=== PATIENT | female | born 1990 ===

== ENCOUNTER 2018-01-29 11:51 | Outpatient (CLI) | payer OTHER ==
[2018-01-29] MEDS ORDERED: SYNTHROID50 MCG PO (12:08)
[2018-01-29] MEDS ORDERED: PRENATAL FORMU1 EAC1 PO (12:10)
[2018-01-29] MEDS ORDERED: FOLIC ACID0.8 MG PO (12:11)
== END 2018-01-29 17:16 | disposition home or self-care (01) ==
LOC: OBS/DEL 11:51
DX: O26.892 Other specified pregnancy related conditions, second trimester (principal); Z04.1 Encounter for examination and observation following transport accident; O60.02 Preterm labor without delivery, second trimester; Z34.82 Encounter for supervision of other normal pregnancy, second trimester; V43.92XA Unspecified car occupant injured in collision with other type car in traffic accident, initial encounter; Y93.89 Activity, other specified; Y92.488 Other paved roadways as the place of occurrence of the external cause; Y99.8 Other external cause status